=== PATIENT | female | born 1970 | race Caucasian/White ===

== ENCOUNTER → 2019-04-21 | Outpatient (CLI) | payer BC | LOC: MC.RAD 06:56 | DX: Z12.31 Encounter for screening mammogram for malignant neoplasm of breast (principal) ==

== ENCOUNTER → 2020-08-28 | Outpatient (CLI) | payer BC | LOC: MC.RAD 07:45 | DX: Z12.31 Encounter for screening mammogram for malignant neoplasm of breast (principal) ==

== ENCOUNTER 2020-10-10 19:53 | Emergency (ER) | payer BC ==
[~2020-10-10] VITALS: Ht 165.1 cm; Wt 59.1 kg
[2020-10-10 20:26] VITALS: TEMP 99.5
[2020-10-10 21:35] VITALS: BP 123/75; PULSE 78
== END 2020-10-10 21:35 | disposition home or self-care (01) ==
LOC: COL.ER 19:53
DX: S61.412A Laceration without foreign body of left hand, initial encounter (principal); Z23 Encounter for immunization; Z88.2 Allergy status to sulfonamides; W26.0XXA Contact with knife, initial encounter; Y93.G1 Activity, food preparation and clean up; Y92.009 Unspecified place in unspecified non-institutional (private) residence as the place of occurrence of the external cause

== ENCOUNTER 2020-10-21 10:54 | Emergency (ER) | payer BC ==
[~2020-10-21] VITALS: Ht 167.6 cm; Wt 59.1 kg
[2020-10-21 11:07] VITALS: BP 102/68; PULSE 68; TEMP 98.2
[2020-10-21] MEDS ORDERED: DOXYCYCLINE 10100 MG PO (12:45)
== END 2020-10-21 12:52 | disposition home or self-care (01) ==
LOC: COL.LAB 10:54 → COL.ER 10:54 → EDSTATUS 11:13 → COL.ER 12:52
DX: Z48.02 Encounter for removal of sutures (principal); T81.49XA Infection following a procedure, other surgical site, initial encounter; Z88.2 Allergy status to sulfonamides

== ENCOUNTER → 2021-09-30 | Outpatient (CLI) | payer BC ==
[~2021-09-30] MED LIST: DOXYCYCLINE 10100 MG PO
== END ==
LOC: MC.RAD 08:34
DX: Z12.31 Encounter for screening mammogram for malignant neoplasm of breast (principal)

== ENCOUNTER 2022-04-03 05:52 | Day surgery (SDC) | payer OTHER ==
[~2022-04-03] VITALS: Ht 167.6 cm; Wt 61.5 kg
[2022-04-03 06:13] VITALS: BP 110/74; PULSE 84; TEMP 97.8
[2022-04-03] MEDS ORDERED: BENADRYL25 M2 PO (06:17)
[2022-04-03] MEDS ORDERED: JUNEL FE 1/20 21 TAB PO (06:17)
[2022-04-03] MEDS ORDERED: ZYRTEC 10MG10 MG PO (06:17)
[2022-04-03 07:40] VITALS: BP 111/72; PULSE 76; TEMP 97.8
[2022-04-03 08:00] VITALS: BP 111/73; PULSE 87
--- NOTE | 2022-04-03 08:10 | NUR ---
0740-Pt returned post procedure to bay 2. SBA to recliner in bay. Spouse present. Refused food or drink at this time. VSS-see flowsheet. Warm blanket given. Call light in reach. 0810-Pts VS remain stable. in to see pt post procedure. DC teaching completed, pt verbalized understanding. IV removed, pressure dressing applied. Staff ambulated with pt to private vehicle for dc home with spouse to drive.
== END 2022-04-03 08:10 | disposition home or self-care (01) ==
LOC: SDCO 05:52
DX: Z12.11 Encounter for screening for malignant neoplasm of colon (principal)
CPT/HCPCS: J2704; J7120

== ENCOUNTER → 2022-12-28 | Outpatient (CLI) | payer OTHER ==
[~2022-12-28] MED LIST changes: +BENADRYL25 M2 PO; +JUNEL FE 1/20 21 TAB PO; +ZYRTEC 10MG10 MG PO
== END ==
LOC: MC.RAD 10:42
DX: Z12.31 Encounter for screening mammogram for malignant neoplasm of breast (principal)